=== PATIENT | female | born 1945 | race Caucasian/White ===

== ENCOUNTER 2017-09-10 09:46 | Inpatient (IN) | payer OTHER, MEDICARE ==
--- NOTE | 2017-09-10 09:49 | EDPHY ---
H & P Time Seen by Provider: 09/10/17 09:47 Constitutional: Initial Vital Signs Temperature (C) 36.6 C 09/10/17 09:46 Heart Rate 112 H 09/10/17 09:46 Respiratory Rate 20 09/10/17 09:46 Blood Pressure 150/101 H 09/10/17 09:46 O2 Sat (%) 84 L 09/10/17 09:46 O2 Delivery Mode Oxymizer O2 (L/minute) 2 Allergies/Adverse Reactions: No Known Allergies Allergy (Unverified 09/10/17 10:05) Home Medications: Medication Instructions Recorded Allopurinol 09/10/17 Artificial Tears Eye Ointment 09/10/17 Docusate Sodium 09/10/17 FLUDROCORTISONE ACETATE 09/10/17 Lorazepam 09/10/17 MIRTAZAPINE 09/10/17 Miralax 17 gm (*) 09/10/17 Percocet 10-325 mg Tablet 09/10/17 Prozac 10 MG (*) 09/10/17 Roxanol Solution 20 mg/ml 30 ml 09/10/17 Seroquel 09/10/17 traZODone 09/10/17 Medical Decision Making - Diagnostics Imaging Results: Imaging Impressions Hip X-Ray 09/10/17 10:00 Impression: Acute angulated moderately displaced left femoral neck fracture. Imaging: I viewed and interpreted images myself ED Course/Re-evaluation: CHIEF COMPLAINT: Left hip pain HISTORY OF PRESENT ILLNESS: The patient is a 71 y/o female with end-stage dementia arriving via EMS from [facility] for evaluation of left hip pain. No history is obtainable from the patient due to dementia. Family states the patient fell last Sunday, 3 days ago, and fractured her hip as demonstrated by an x-ray at her facility. She she was in hospice care at that time, they decided not to surgically repair the fracture. Family has since revoked hospice and wants surgical treatment for the fracture, but refuse general anesthesia because they are concerned this will worsen the patient's dementia. No recent report of illness. REVIEW OF SYSTEMS: Unobtainable due to dementia. PHYSICAL EXAM: HR, BP, O2 Sat, RR. Temp noted General Appearance: Alert, disoriented, unable to follow commands, and chronically ill-appearing. Head: Atraumatic without scalp tenderness or obvious injury Eyes: Pupils equal, round, reactive to light and accommodation, EOMI, no trauma , no injection. Nose: Atraumatic, no rhinorrhea, clear. Throat: Mucus membranes moist. Neck: Supple Respiratory: No retractions, no distress, no wheezes, and no accessory muscle use. Lungs are clear to auscultation bilaterally. Cardiovascular: Regular rate and rhythm, no murmurs, rubs, or gallops. Good capillary refill all extremities. Gastrointestinal: Abdomen is soft, nontender, non-distended, no masses, no rebound, no guarding, no peritoneal signs. Musculoskeletal: Tenderness and pain with ROM of left hip, shortened and externally rotated. Otherwise normal active ROM of all extremities, atraumatic. Neurological: Alert, disoriented, unable to follow commands. No focal deficit. Skin: No rashes, good turgor, no nodules on palpation. Past medical history: Lewy body dementia, failure to thrive Past surgical history: Eye surgery, right hip surgery Family history: Noncontributory Social history: Lives in dementia care unit at [facility]. MDPOA: family, Reyes Lott. DIAGNOSTICS/PROCEDURES/CRITICAL CARE TIME: Hip x-ray: left femoral neck fracture, prosthetic right hip DIFFERENTIAL DIAGNOSIS: The differential diagnosis for the patient's trauma included but was not limited to intracranial injury, long bone and pelvic bone fractures, spinal injury, intra-abdominal injury, and intra-thoracic injury. MEDICAL DECISION MAKING: This is a 71 y/o female with end-stage Lewy body dementia who was on hospice until recently and presents 3 days after a left hip fracture secondary to fall at her facility. History and exam limited by dementia. Left hip tenderness and pain with ROM. Movement in all extremities. Plan for x-ray to confirm reported fracture, IV, pre-operative labs, and admission. X-ray confirmed left femoral neck fracture. Spoke with hospitalist service. Dr. Arambula accepts admission. 1100: Consulted with Dr. Bonds, orthopedist. He will consult during admission. Discussed plan with patient's family. They agree to admission. Departure - Departure Disposition: [facility] Acute Clinical Impression: Left displaced femoral neck fracture Dementia Qualifiers: Dementia type: Lewy body dementia Dementia behavioral disturbance: without behavioral disturbance Qualified Code(s): G31.83 - Dementia with Lewy bodies Condition: Fair Referrals: Patient,NotPresent [Unknown] - As per Instructions Report Scribed for: Quinn Tyson Report Scribed by: Katlyn Coffman Date of Report: 09/10/17 Time of Report: 09:58
[2017-09-10 11:46] LABS: PLATELET COUNT 226 10^3/uL (150-400)
[2017-09-10 11:57] LABS: INR 1.03 (0.83-1.16); PROTIME(PATIENT) 13.7 SEC (12.0-15.0)
[2017-09-10] MEDS ORDERED: PROMETHAZINE HCL 25 MG/ML INJ IVP PRN (13:12)
[2017-09-10] MEDS ORDERED: LORazepam 2 MG/ML INJ IVP PRN ×2 (13:12→13:23)
[2017-09-10] MEDS ORDERED: MORPHINE PO PRN (13:16)
[2017-09-10] MEDS ORDERED: morphINE 10 MG/0.5 ML UDSYR PO PRN (13:35)
--- NOTE | 2017-09-10 13:58 | GHP ---
[f rep st] HISTORY AND PHYSICAL DATE OF ADMISSION: 09/10/2017 CHIEF COMPLAINT: Hip pain. HISTORY OF PRESENT ILLNESS: Ms. Lott is a 71-year-old with a history significant for advanced Lewy body dementia. This is complicated by psychosis, parkinsonism. She is currently living with her hus band at [facility] with the help of hospice. Three days ago she fell and fractured her hip. They have been treating her medically with Roxanol and Percocet at the facility. However, her did not want to see her that way, so elected to take her off hospice and have her hi p fixed hoping that she would be ambulatory again. She is currently on hospice for protein calorie m alnutrition and weight loss. Hospice came with the family today. They are taking her off hospice an d all of the history is gleaned from the and daughter, Cheryle, who is the medical power of attor tito. Ms. Lott has no significant past medical history except for the Lewy body dementia. She has a healthy heart and lungs as far as they know. She has had some eye surgery on her left eye and is tr eated with some eyedrops currently. She is intermittently incontinent of stool, but is likely mostly secondary to confusion. She has been able to tolerate Ativan at the assisted living without signifi cant agitation, but has worsening agitation with Haldol. She also has been on Roxanol for pain and s cheduled Percocet. She has been taking Seroquel, Remeron, and trazodone at night for sleep. She was seen in the ER today by Dr. Bonds from Orthopedics who hopes to take her to surgery later today or to [facility] depending on the OR schedule. Currently she looks scared, but does not appear to be i n excessive pain. REVIEW OF SYSTEMS: Unobtainable per patient given her advanced dementia. PAST MEDICAL HISTORY: Lewy body dementia, gout, chronic eye problems. FAMILY HISTORY: Parents are . SOCIAL HISTORY: The patient was previously living in [place] with her . He had a catatoni c manic break and has been in a psychiatric [facility] for the last 2 months, receiving ECT for h is catatonia. In the interim, the patient was moved to [place] to be with her daughter. Her is currently out of the psychiatric cui, woke up from his catatonia and is living with his in [facility]. Currently the daughter Cheryle is the medical power of cyber security consultant. MEDICATIONS: Please see medication reconciliation form. These include Remeron 15 at night, morphine , Roxanol as needed, Percocet 10-325 every 6 hours, MiraLAX, Seroquel 25 at night, trazodone 50 at ni ght, allopurinol 300 daily, Ativan 0.5 at night and 3 times a day as needed, ciprofloxacin eyedrops, Colace, Florinef 0.5 mg daily, Prozac 20 mg daily. ALLERGIES: No known drug allergies although the daughter states that Haldol makes her pass fairly ag itated. PHYSICAL EXAMINATION: VITAL SIGNS: She is afebrile, heart rate 102 with a blood pressure 145/89, re spirations 18, she is 80% on room air 95% on 2 L. GENERAL: She is a thin 71-year-old woman who look s scared and mildly agitated, but does not appear to be in excessive pain. HEENT: She does have leanne e temporal wasting. Mucous membranes are dry. Pupils are irregular and not equal. Her left pupil a ppears to be minimally reactive and this is an old finding. HEART: Regular with a systolic murmur. LUNGS: Clear and diminished. ABDOMEN: Soft. No distention. Mild diffuse tenderness without guar ding or rebound. EXTREMITIES: No clubbing, cyanosis, or edema. She does have an acute angulated mo derately displaced fracture of the left femoral neck and prior right hip arthroplasty and completely visualized. NEUROLOGIC: She is minimally verbal, very poor short-term memory. NECK: No significan t adenopathy. LABORATORY DATA: Sodium 150, BUN 24, creatinine 0.9, glucose 144. CBC is unremarkable. Coags are n ormal. ASSESSMENT AND PLAN: 71-year-old presents with a fall and acute left hip fracture, has failed pain m anagement with hospice and is being admitted for surgery. Dr. Bonds is the orthopedic water conservation specialist and has seen the patient and plans on taking her to surgery later today. Given her overall need for surgery and poor neurological prognosis, I will not do any further evaluation but clear her for surgery. Nazario capellan does not have any documented history of heart or lung disease. She has moderate to high risk given her comorbidities. However, this surgery needs to be done. 1. Lewy body dementia with psychosis and parkinsonism. We will continue her present medications. Andria capellan will supplement this with extra doses of Seroquel and Ativan on an as needed basis. 2. Pain control. Will continue oral medications as previously prescribed by hospice. However, whmain capellan she is n.p.o. we will provide IV morphine. 3. Code status. I did have a long discussion with the daughter Cheryle. At this time she wishes her to be full code, but will think about transitioning her to at least no compression status. 4. Deep venous thrombosis prophylaxis. Patient is going to undergo surgery. We will hold chemical prophylaxis and place TEDs and SCD and resume chemical prophylaxis after surgery. /[id number]/MODL
[2017-09-10] MEDS: TEARS/DEXTRAN 70/HYPROMELLOSE 15 ML OPHT.BTL EACHEYE SCH ×4 (14:53→23:40)
[2017-09-10] MEDS: D5W 1/2 NS 1,000 ML IV SCH (15:03)
--- NOTE | 2017-09-10 16:10 | PDMN ---
Medical Necessity Medical necessity: est los>2mn for L hip fx r/t fall, w/failed pain management on hospice; admit for pain control and surgical repair of fx; comorbid advane Lewy body dementia complicated by psychosis and parkinsonism; per order and H&P 09/10/17
[2017-09-10] MEDS ORDERED: BACITRACIN 50,000 UNITS/10 ML SYR IRR ONE (17:51)
[2017-09-10] MEDS ORDERED: POLYMYXIN B SULFATE 500,000 UNIT/10 ML SYR IRR ONE (17:51)
[2017-09-10] MEDS ORDERED: NON-FORMULARY NEW DRUG (Oxycodone Hcl/Acetaminophen [Percocet 10-325 Mg Tablet] 1 EACH) PO SCH (18:00)
[2017-09-10] MEDS ORDERED: LR 1,000 ML IV ONE (18:06)
[2017-09-10] MEDS ORDERED: ceFAZolin 2 GM/SWFI 2 GM/20 ML SYR IVP ONE (18:22)
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
[2017-09-10] MEDS ORDERED: LIDOCAINE 2% 5 ML SDV ONE (18:41)
[2017-09-10] MEDS ORDERED: PROPOFOL/EMULSION 500 MG/50 ML BOTTLE IV ONE (18:41)
[2017-09-10] MEDS ORDERED: fentaNYL 100 MCG/2 ML INJ ONE (18:46)
[2017-09-10] MEDS ORDERED: KETAMINE 200 MG/20 ML VIAL ONE (18:46)
[2017-09-10] MEDS ORDERED: DEXAMETHASONE 4 MG/ML VIAL ONE ×2 (19:42)
[2017-09-10] MEDS ORDERED: PHENYLEPHRINE HCL 100 MCG/ML SYR ONE (20:03)
--- NOTE | 2017-09-10 20:05 | GCON ---
[f rep st] CONSULTATION INPATIENT CONSULTATION. DATE OF CONSULTATION: 09/10/2017 REASON FOR CONSULTATION: Left femoral neck fracture. HISTORY: The patient is a 71-year-old woman with a significant past history of advanced Lewy body de mentia. She was recently placed in hospice and had a mechanical fall, sustaining the above-noted lef t hip fracture. Her past history is also significant for a right hip fracture treated with hemiarthr oplasty about 6 years ago in [place] where she lived previously. She has recently moved to [facility] to be closer to her daughter, who lives here. Her has removed her from hospice in order t o have her hip fracture fixed due to the excessive pain she is in and their inability to control this satisfactorily at hospice. PAST MEDICAL HISTORY: Otherwise, her medical history is well outlined in her admission through the e mergency department. PHYSICAL EXAMINATION: EXTREMITIES: Finds her left leg to be foreshortened and externally rotated co mpared to the right. She has difficult to communicate accurately with her, but according to her husb and and daughter, who understand her communication, she does appear to have abnormal sensation in her foot. She has a bounding dorsalis pedis pulse. Her x-rays show a Garden IV femoral neck fracture with significant varus angular deformity. IMPRESSION AND RECOMMENDATIONS: Particular symptomatic left femoral neck fracture. We will plan for cemented hemiarthroplasty fixation such that she may allow immediate weightbearing. She is remarkab ly slender. We will perform her surgery later today as OR time is available. /[id number]/MODL
[2017-09-10] MEDS ORDERED: DIAZEPAM 10 MG/2 ML SYR IVP PRN (20:48)
[2017-09-10] MEDS ORDERED: HYDROmorphONE/DILAUDID 1 MG/ML INJ IVP PRN (20:48)
[2017-09-10] MEDS ORDERED: ALBUTEROL 3 ML DEYVIAL IH PRN (20:48)
[2017-09-10] MEDS ORDERED: LR 500 ML IV PRN (20:48)
[2017-09-10] MEDS ORDERED: NALOXONE HCL 0.4 MG/ML INJ IVP PRN (20:48)
[2017-09-10] MEDS ORDERED: ONDANSETRON 4 MG/2 ML VIAL IVP PRN (20:48)
[2017-09-10] MEDS ORDERED: fentaNYL 100 MCG/2 ML INJ IVP PRN (20:48)
[2017-09-10] MEDS ORDERED: BUPIVACAINE/EPI 0.5% 30 ML SDV ONE (20:52)
[2017-09-10] MEDS ORDERED: NON-FORMULARY NEW DRUG (Mirtazapine [Remeron] 15 MG) PO SCH (21:00)
[2017-09-10] MEDS ORDERED: PETROLAT,WHT/MIN OIL/SOD CHL 3.5 GM OPHT.OINT LEFTEYE SCH (21:00)
[2017-09-10] MEDS ORDERED: CIPROFLOXACIN HCL LEFTEYE SCH (21:00)
--- NOTE | 2017-09-10 21:13 | POSTANESTH ---
Post Anesthetic Evaluation Cardiovascular Status: Normal, Stable Respiratory Status: Normal, Stable Level of Consciousness/Mental Status: Other, See Comment (Demented, did not answer questions or follow commands pre-op and is not doing so now. Difficult to assess pain or nausea, however pt not grimacing or retching.) Complications Possibly Related to Anesthesia: Other, See Comments
--- NOTE | 2017-09-10 21:26 | POSTOPPROG ---
Post Op Note Date of Operation: 09/10/17 Surgeon: Reyes Bonds Residence Supervisor: Marina Mcqueen PA-C Anesthesia: Spinal Pre-op Diagnosis: Left hip femoral neck fracture Post-op Diagnosis: Left hip femoral neck fracture Indication: unstable fracture Procedure: Left hip hemiarthroplasty: Luana Head45/[id number], Stem 5 cemented Findings: see dictated operative note Inf/Abcess present in the surg proc area at time of surgery?: No EBL: 50-100 Complications: none Specimen(s): none
--- NOTE | 2017-09-10 22:20 | GOP ---
[f rep st] OPERATIVE REPORT DATE OF OPERATION: 09/10/2017 SURGEON: Reyes Bonds MD CLOTHING WORKER: Marina Mcqueen PA-C PREOPERATIVE DIAGNOSIS: Left Garden IV femoral neck fracture. POSTOPERATIVE DIAGNOSIS: Left Garden IV femoral neck fracture. PROCEDURE PERFORMED: Left hip hemiarthroplasty. FINDINGS: An Omnifit SRAVAN 132-degree, size 5 cemented stem was utilized with a 26 mm head and a 45 mm bipolar head. INDICATIONS: Patient is a 71-year-old woman who is disabled secondary to Lewy body dementia and park insonism. She had a mechanical fall with a fracture noted several days ago. She is brought to the ope rating room today for definitive surgical management at the family's request. DESCRIPTION OF PROCEDURE: After routinely checking the patient's identification and consent and the successful induction of spinal anesthetic, the patient was positioned in the left side up side-lying position. Padded hip rests were placed anteriorly and posteriorly. A Wilson catheter was placed to con tinuous bag drainage and the patient received 2 g of Kefzol intravenously. The patient's left hip was then prepped and draped in the usual standard fashion. A surgical time-out was completed. A longitudinal incision centered over the greater trochanter was carried sharply through the skin and then bluntly through the subcutaneous layer. I used a hot knife to dissect down to the IT-band which was then incised longitudinally in a manner parallel with its fibers directly over the greater troch anter. The Charnley self-retaining retractor was placed. I took down the short external rotators from the posterior aspect of the greater trochanter including tagging the piriformis tendon for subsequen t repair. I exposed the joint capsule and made a T-shaped capsulotomy. We then internally rotated the leg, which dislocated the hip and brought the femoral head easily out of the acetabulum. This was si zed on the back table to a size 45 mm head. A trial 44 and 45 mm heads were then placed in the acetab ulum with excellent fit with a 45 with excellent suction effect noted and the surface was flush with the acetabular labrum. Satisfied with this, I then used a box osteotome to create entrance into the f emoral canal. I used a series of reamers and broaches up to a size 5 broach. I seated the #5 cemented broach and used the calcar planer to trim the remaining femoral neck bone. Once this was completed, we did a trial reduction. I was satisfied with the 30 mm neck length when we did a trial reduction wi th a 45 mm head. I felt the leg lengths were symmetrical and when the patient's hip was flexed to 90 degrees and internally rotated, the hip did not dislocate until 60 degrees of internal rotation. The trial implants were then removed. The femoral canal was irrigated with pulsatile lavage. The polymeth ylmethacrylate was then simultaneously vacuum mixed on the back table. I then pressurized methacrylat e in the femoral canal and placed the implant. Excess cement was removed with curettes. The stem was held in position until the cement had hardened. I then removed all excess cement particles and irriga claudia the acetabulum thoroughly. I reduced the hip with its definitive components. I was quite satisfie d with the stability and the leg lengths. Re-irrigated the area and then closed the capsule with 2-0 FiberWire suture. I then reattached the piriformis tendon back to the greater trochanter through bone holes. I was able to pass suture needle directly through the greater trochanter. The IT band was the n approximated with multiple interrupted [id number] buried knot sutures of #1 PDS. The subcutane ous layer was closed with 2-0 Vicryl and the skin with surgical percy. 30 cc of 0.25% Marcaine plus epinephrine were infiltrated around the wound and deeply around under the greater trochanter for pos toperative comfort and assistance in hemostasis. A sterile bulky dressing was applied. The patient tolerated the procedure well and was transferred to recovery area in excellent condition. There were no complications. REASON FOR CLOTHING WORKER: A surgical corsetier was medically necessary and required to complete this chaparrita e. The pastry assistant was used to decrease surgical time and also to position the leg in 3-dimensional spa ce during the preparation of the femoral canal and placement of the definitive implant. Additionally, the pastry assistant was used to assist in dislocating and relocating the hip on numerous occasions necessa ry during the trialing and definitive implant placement. /[id number]/MODL
[2017-09-10] MEDS: LORazepam 0.5 MG TAB PO SCH (23:27)
[2017-09-10] MEDS: MIRTAZAPINE 15 MG TAB PO SCH (23:28)
[2017-09-10] MEDS: QUEtiapine FUMARATE 25 MG TAB PO SCH (23:28)
[2017-09-10] MEDS ORDERED: ENOXAPARIN 60 MG/0.6 ML SYR SC SCH (23:30)
[2017-09-10] MEDS: traZODone 50 MG TAB PO SCH (23:42)
[2017-09-10] MEDS: oxyCODONE IR 5 MG TAB PO PRN (23:48)
[2017-09-10] MEDS: CIPROFLOXACIN 0.3% DROPS PREPACK OPHT.BTL TAKEHOME SCH (23:53)
[2017-09-11] MEDS: PETROLAT,WHT/MIN OIL/SOD CHL 3.5 GM OPHT.OINT LEFTEYE SCH ×2 (00:09→21:17)
[2017-09-11] MEDS: TEARS/DEXTRAN 70/HYPROMELLOSE 15 ML OPHT.BTL EACHEYE SCH ×12 (00:57→23:12)
[2017-09-11] MEDS: ceFAZolin 2 GM/DEXTROSE 100 ML IV SCH ×2 (01:30→09:13)
[2017-09-11 05:55] LABS: PLATELET COUNT 205 10^3/uL (150-400)
[2017-09-11] MEDS: ENOXAPARIN 40 MG/0.4 ML SYR SC SCH (08:27)
[2017-09-11] MEDS: CIPROFLOXACIN 0.3% DROPS PREPACK OPHT.BTL TAKEHOME SCH ×2 (08:28→21:17)
[2017-09-11] MEDS: oxyCODONE IR 5 MG TAB PO PRN ×4 (09:12→19:21)
[2017-09-11] MEDS: FLUoxetine 20 MG CAP PO SCH (09:13)
[2017-09-11] MEDS: FLUDROCORTISONE ACETATE 0.1 MG TAB PO SCH (09:13)
[2017-09-11] MEDS: DOCUSATE SODIUM 100 MG CAP PO SCH (09:13)
[2017-09-11] MEDS: POLYETHYLENE GLYCOL 3350 17 GM PKT PO SCH (10:09)
--- NOTE | 2017-09-11 10:52 | HOSPPROG ---
Hospitalist Progress Note Assessment/Plan: 71-year-old admitted with hip fracture status post hemiarthroplasty by Dr. Bonds. She Has a past medical history significant for Lewy body dementia. # hip fracture status post surgery. PT and OT T per Dr. Bonds will likely need rehab post hospitalization # Lewy body dementia complicated by psychosis and parkinsonian. * Continue her usual medication * Added extra Ativan and Seroquel to use as needed for agitation while in the hospital * Will likely impact her rehab potential # hypernatremia likely secondary to dehydration and poor p.o. intake. Encourage p. O. will continue IV fluids today and likely DC IVF tomorrow if sodium improves * Recheck sodium in a.m. * Poor p.o. unless helps feeding her, will have speech therapy evaluation done # question abdominal pain. Fairly off but patient grimacing. * Check flat plate of the abdomen, rule out constipation * Check LFTs # small lung nodule noted on chest x-ray. I spoke with daughter Cheryle about this she is a medical power trade mark attorney and recommended no further workup given the patient's debilitated state. The daughter was in favor of this perhaps if she does well 3-[address] they could consider follow-up chest x- ray. I would not however get a CT scan at this point since the patient would likely not be and a suitable candidate for any treatment should this be cancer # DVT prophylaxis: Start subcu Lovenox if okay with Ortho Disposition: Patient's daughter will talk with case management regarding rehab. Admission they were looking towards rehab and re-establishing hospice once the patient was ambulating and able to go back to her assisted living facility. Subjective: Patient agitated scared due to her dementia. No obvious complaints of pain although grimaces when I examine her abdomen Objective: Vital Signs Temp Pulse Resp BP Pulse Ox 36.6 C 96 18 118/68 94 09/11/17 08:40 09/11/17 08:40 09/11/17 08:40 09/11/17 08:40 09/11/17 08:40 Laboratory Results 09/11/17 04:48 09/11/17 04:48 09/10/17 09/11/17 09/12/17 05:59 05:59 05:59 Intake Total 1700 Output Total 700 Balance 1000 PT 13.7 SEC (12.0-15.0) 09/10/17 11:32 INR 1.03 (0.83-1.16) 09/10/17 11:32 - Physical Exam Constitutional: chronically ill appearing, uncomfortable Eyes: No PERRL Ears, Nose, Mouth, Throat: dry mucous membranes Cardiovascular: regular rate and rhythym Respiratory: no respiratory distress, reduced air movement Gastrointestinal: tenderness, No distension Genitourinary: no bladder fullness Skin: warm Musculoskeletal: generalized weakness Neurologic: No AAOx3 Psychiatric: anxious, agitated, poor memory ICD10 Worksheet Patient Problems: Problems Problem Status Onset Dementia Acute Left displaced femoral neck fracture Acute
[2017-09-11] MEDS: D5W 1/2 NS 1,000 ML IV SCH ×2 (11:07→21:33)
--- NOTE | 2017-09-11 15:25 | ASMTCMCOM ---
CM Note CM Note Notes: Pt had surgery for hip fracture yesterday. Pt lives w Steven at [facility] in memory care unit, pt has advanced dementia. Pt was on hospice and after fell she was d/c form hospice for the surgery and Steven wants pt to go to SNF for rehab (prefers a [facility] SNF). Referrals sent: [facility] declines due to adv dementia, Interested SNFs include [facility], [facility] and [facility], pending referrals are [facility] and [facility]. Pt currently has a sitter and would need to be off 24 hours for SNF d/c. CM to follow. Date Signed: 09/11/2017 03:24 PM Electronically Signed By:BECKA Diez
[2017-09-11] MEDS ORDERED: NS 500 ML IV ONE (15:49)
[2017-09-11] MEDS ORDERED: MAGNESIUM HYDROXIDE 30 ML UDCUP PO PRN (17:10)
[2017-09-11] MEDS ORDERED: BISACODYL 10 MG SUPP PR PRN (17:10)
[2017-09-11] MEDS ORDERED: LACTULOSE 20 GM/30 ML UDCUP PO PRN (17:10)
[2017-09-11] MEDS: LORazepam 0.5 MG TAB PO SCH (20:16)
[2017-09-11 21:05] LABS: PLATELET COUNT 219 10^3/uL (150-400)
[2017-09-11] MEDS: MIRTAZAPINE 15 MG TAB PO SCH (21:16)
[2017-09-11] MEDS: traZODone 50 MG TAB PO SCH (21:17)
[2017-09-11] MEDS: QUEtiapine FUMARATE 25 MG TAB PO SCH (21:17)
[2017-09-11] MEDS: SENNOSIDES/DOCUSATE SODIUM TAB PO SCH (21:17)
[2017-09-12] MEDS: TEARS/DEXTRAN 70/HYPROMELLOSE 15 ML OPHT.BTL EACHEYE SCH ×11 (01:16→23:19)
[2017-09-12] MEDS: D5W 1/2 NS 1,000 ML IV SCH ×2 (05:14→17:47)
[2017-09-12] MEDS: oxyCODONE IR 5 MG TAB PO PRN ×2 (06:16→11:29)
[2017-09-12] MEDS ORDERED: PROTOCOL MAGNESIUM 1 DOSE IV PRN (07:24)
[2017-09-12] MEDS ORDERED: PROTOCOL POTASSIUM 1 DOSE MISC PRN (07:24)
[2017-09-12] MEDS ORDERED: POTASSIUM Cl (KCl) 100 ML IV SCH (07:45)
--- NOTE | 2017-09-12 07:58 | SOAPPROG ---
SOAP Progress Note Assessment/Plan: Assessment: POD#2 from left hip femoral neck fracture fixed with hemiarthroplasty Plan: WBAT LLE PT/OT Pain medicine as needed Daily dressing changes DVT prophylaxis STEFANIA hose Ortho to follow Subjective: Patient is POD#2 from left hip femoral neck fracture fixed with hemiarthroplasty Objective: Vital Signs Temp Pulse Resp BP Pulse Ox 37.2 C 92 18 131/70 H 95 09/12/17 04:00 09/12/17 04:00 09/12/17 04:00 09/12/17 04:00 09/12/17 04:00 Laboratory Results 09/12/17 05:08 09/12/17 05:08 09/11/17 09/12/17 09/13/17 05:59 05:59 05:59 Intake Total 1700 3683 Output Total 700 820 Balance 1000 2863 PT 13.7 SEC (12.0-15.0) 09/10/17 11:32 INR 1.03 (0.83-1.16) 09/10/17 11:32 Physical exam of the left hip: dressing clean, dry and intact. Incision healing well, percy are intact, no erythema. Distal pulse present in the LLE. ICD10 Worksheet Patient Problems: Problems Problem Status Onset Dementia Acute Left displaced femoral neck fracture Acute
[2017-09-12] MEDS: POTASSIUM Cl (KCl) 10 MEQ in NS 100 ML IV SCH ×3 (08:54→11:36)
[2017-09-12] MEDS: ENOXAPARIN 40 MG/0.4 ML SYR SC SCH (09:01)
[2017-09-12] MEDS: FLUDROCORTISONE ACETATE 0.1 MG TAB PO SCH (09:02)
[2017-09-12] MEDS: FLUoxetine 20 MG CAP PO SCH (09:03)
[2017-09-12] MEDS: CIPROFLOXACIN 0.3% DROPS PREPACK OPHT.BTL TAKEHOME SCH ×2 (09:20→20:37)
[2017-09-12] MEDS: POLYETHYLENE GLYCOL 3350 17 GM PKT PO SCH (09:21)
[2017-09-12] MEDS: DOCUSATE SODIUM 100 MG CAP PO SCH (09:21)
[2017-09-12] MEDS: SENNOSIDES/DOCUSATE SODIUM TAB PO SCH ×2 (09:21→20:37)
--- NOTE | 2017-09-12 09:25 | SOAPPROG ---
SOAP Progress Note Assessment/Plan: Assessment: Doing Fine, Hard to understand her verbal skills but at bedside and he is able to help with this Plan:Pain control DVT prophylaxxis PT as tolerated. D/C planning 09/12/17 09:23 Subjective: LATE ENTRY FROM 09/11/17 POD 1 c/o pain in L hip. Objective: Vital Signs Temp Pulse Resp BP Pulse Ox 37.2 C 99 18 131/70 H 95 09/12/17 04:00 09/12/17 08:00 09/12/17 04:00 09/12/17 04:00 09/12/17 08:00 Laboratory Results 09/12/17 05:08 09/11/17 09/12/17 09/13/17 05:59 05:59 05:59 Intake Total 1700 3683 Output Total 700 820 Balance 1000 2863 PT 13.7 SEC (12.0-15.0) 09/10/17 11:32 INR 1.03 (0.83-1.16) 09/10/17 11:32 Wound CDI Calves NT CSM I toes ankles ICD10 Worksheet Patient Problems: Problems Problem Status Onset Dementia Acute Left displaced femoral neck fracture Acute
[2017-09-12] MEDS ORDERED: POTASSIUM Cl (KCl) 10 MEQ in NS 100 ML IV ONE (10:45)
[2017-09-12] MEDS ORDERED: MAGNESIUM SULF 1 GM/DEXTROSE 100 ML IV ONE (13:25)
--- NOTE | 2017-09-12 14:59 | ASMTCMCOM ---
CM Note CM Note Notes: Pt PASRR triggered and sent to [facility], returned and approved with no MMI. An accepting SNF is still pending. [facility] has declined pt due to adv dementia. Several SNFs are still considering. mAina Nelson met smiley Harris and will consider an on-site once pt is off a sitter. Cm to follow. D/c plan of care: SNF once medically stable and there is an accepting facility. Date Signed: 09/12/2017 02:37 PM Electronically Signed By:BECKA Diez
--- NOTE | 2017-09-12 18:08 | HOSPPROG ---
Hospitalist Progress Note Assessment/Plan: 71-year-old admitted with hip fracture status post hemiarthroplasty by Dr. Bonds. She Has a past medical history significant for Lewy body dementia. # hip fracture status post surgery. PT and OT T per Dr. 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 intake- sodium improved to 150-> 140 with ivf - continue IV fluids today and likely DC IVF tomorrow if oral intake improves - Recheck sodium in a.m. # question abdominal pain- less grimacing today on exam Abdominal x-ray(personally reviewed and interpreted) constipation no bowel obstruction - bowel regimen # small lung nodule noted on chest x-ray- daughter Cheryle about this she is a medical power detailer school photographs and recommended no further workup given the patient's debilitated state. The daughter was in favor of this perhaps if she does well 3 -[address] they could consider follow-up chest x-ray. I would not however get a CT scan at this point since the patient would likely not be and a suitable candidate for any treatment should this be cancer # DVT prophylaxis-Lovenox Disposition: Patient's daughter will talk with case management regarding rehab. Admission they were looking towards rehab and re-establishing hospice once the patient was ambulating and able to go back to her assisted living facility. Subjective: Concerned about lost jewelry Objective: Vital Signs Temp Pulse Resp BP Pulse Ox 37.2 C 109 H 18 147/65 H 93 09/12/17 04:00 09/12/17 17:43 09/12/17 17:43 09/12/17 17:43 09/12/17 15:05 Laboratory Results 09/12/17 05:08 09/12/17 08:45 09/11/17 09/12/17 09/13/17 05:59 05:59 05:59 Intake Total 1700 3683 340 Output Total 700 820 450 Balance 1000 2863 -110 PT 13.7 SEC (12.0-15.0) 09/10/17 11:32 INR 1.03 (0.83-1.16) 09/10/17 11:32 - Physical Exam Constitutional: chronically ill appearing Eyes: anicteric sclera Ears, Nose, Mouth, Throat: dry mucous membranes Cardiovascular: regular rate and rhythym Respiratory: no respiratory distress Gastrointestinal: normoactive bowel sounds Genitourinary: no bladder fullness Skin: warm Musculoskeletal: No asymmetric calves Neurologic: No AAOx3 Psychiatric: poor insight, poor judgement, poor memory Lymph, Heme, Immunologic: no cervical LAD ICD10 Worksheet Patient Problems: Problems Problem Status Onset Dementia Acute Left displaced femoral neck fracture Acute
[2017-09-12] MEDS: MIRTAZAPINE 15 MG TAB PO SCH (20:36)
[2017-09-12] MEDS: QUEtiapine FUMARATE 25 MG TAB PO SCH (20:37)
[2017-09-12] MEDS: PETROLAT,WHT/MIN OIL/SOD CHL 3.5 GM OPHT.OINT LEFTEYE SCH (20:38)
[2017-09-12] MEDS ORDERED: POTASSIUM Cl (KCl) 10 MEQ in NS 100 ML IV SCH (23:30)
[2017-09-12] MEDS: POTASSIUM Cl (KCl) 10 MEQ in D5W 100 ML IV SCH (23:32)
[2017-09-13] MEDS: POTASSIUM Cl (KCl) 10 MEQ in D5W 100 ML IV SCH ×3 (00:48→02:52)
[2017-09-13] MEDS: TEARS/DEXTRAN 70/HYPROMELLOSE 15 ML OPHT.BTL EACHEYE SCH ×12 (00:49→23:12)
[2017-09-13] MEDS: D5W 1/2 NS 1,000 ML IV SCH ×2 (05:50→14:37)
--- NOTE | 2017-09-13 08:08 | SOAPPROG ---
SOAP Progress Note Assessment/Plan: Assessment: POD#3 from left hip femoral neck fracture fixed with hemiarthroplasty. Patient has a h/o Lewy Body dementia and is unable to respond appropriately to questions or command. Plan: TTWB, encourage PT/OT for ambulation and use of walker. Pain medicine as needed Daily dressing changes: dry dressing. Notify us if abnormal bleeding/oozing/ discharge noted, change in heat/color around wound site. DVT prophylaxis: STEFANIA lisa and SCDs. Continue plan per IM. Ok to D/C once stable and cleared by IM. F/U in 7-10 days or prn additional questions/concerns which may arise. Patient discussed with Dr. Bonds. Subjective: Doing well POD #3. Unable to respond appropriately to questions. Alone in room. Objective: Vital Signs Temp Pulse Resp BP Pulse Ox 36.3 C 84 18 104/55 L 98 09/13/17 07:30 09/13/17 07:30 09/13/17 07:30 09/13/17 07:30 09/13/17 07:30 Laboratory Results 09/12/17 05:08 09/13/17 05:13 18 18 02/18 05:59 05:59 05:59 Intake Total 3683 1750 Output Total 820 450 Balance 2863 1300 PT 13.7 SEC (12.0-15.0) 09/10/17 11:32 INR 1.03 (0.83-1.16) 18 11:32 NAD. Moist buccal mucosa. Non-labored breathing. No diaphoresis. Unable to respond appropriately to command or questions. M/S: Left hip bandaged with no signs of infection. No abnormal bleeding/oozing/ discharge, change in heat/color around wound site or of extremities. SCDs in place b/l. Calves soft/supple and NTTP b/l. Brisk cap refill b/l. ICD10 Worksheet Patient Problems: Problems Problem Status Onset Dementia Acute Left displaced femoral neck fracture Acute
[2017-09-13] MEDS ORDERED: MAGNESIUM SULF 1 GM/DEXTROSE 100 ML IV ONE (09:23)
[2017-09-13] MEDS ORDERED: POTASSIUM Cl (KCl) 100 ML IV SCH (09:30)
[2017-09-13] MEDS: FLUoxetine 20 MG CAP PO SCH (09:32)
[2017-09-13] MEDS: ENOXAPARIN 40 MG/0.4 ML SYR SC SCH (09:33)
[2017-09-13] MEDS: FLUDROCORTISONE ACETATE 0.1 MG TAB PO SCH (09:33)
[2017-09-13] MEDS: morphINE 10 MG/0.5 ML UDSYR PO PRN ×4 (09:34→20:14)
[2017-09-13] MEDS: CIPROFLOXACIN 0.3% DROPS PREPACK OPHT.BTL TAKEHOME SCH ×2 (09:45→20:33)
[2017-09-13] MEDS ORDERED: POTASSIUM Cl (KCl) 10 MEQ in NS 100 ML IV SCH (10:00)
[2017-09-13] MEDS: DOCUSATE SODIUM 100 MG CAP PO SCH (11:00)
[2017-09-13] MEDS: SENNOSIDES/DOCUSATE SODIUM TAB PO SCH ×2 (11:01→20:32)
[2017-09-13] MEDS: POLYETHYLENE GLYCOL 3350 17 GM PKT PO SCH (11:01)
--- NOTE | 2017-09-13 16:07 | ASMTCMCOM ---
CM Note CM Note Notes: [facility] are concerned about admitting pt to their rehabs due to severe dementia, now that pt no longer has sitter the staff of and [facility] would need to complete an on-site assessment to consider pt. Today Ralf Carlson completed an on-site and met w pt husb, Ralf states pt is tentatively accepted pending final approval to which may be the best SNF option because they have rehab and memory care. Looks like we still need the paperwork from chris Lobato that she is the MDPOA, attempted a call Cheryle & left a vm for her requesting it. CM to follow. Date Signed: 09/13/2017 04:06 PM Electronically Signed By:BECKA Diez
--- NOTE | 2017-09-13 17:26 | HOSPPROG ---
Hospitalist Progress Note Assessment/Plan: 71-year-old admitted with hip fracture status post hemiarthroplasty by Dr. Bonds. She Has a past medical history significant for Lewy body dementia. # hip fracture status post surgery.POD#3 - PT and OT T per Dr. 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 intake- sodium improved to 150-> remains 140 with IVF - continue IV fluids today and likely DC IVF tomorrow if oral intake improves - Recheck sodium in a.m. - patient taking very little p.o. Requiring a lot of supportive care # question abdominal pain- less grimacing today on exam Abdominal x-ray (personally reviewed and interpreted) constipation no bowel obstruction - bowel regimen # small lung nodule noted on chest x-ray- daughter Cheryle about this she is a medical power admitted attorneys and recommended no further workup given the patient's debilitated state. The daughter was in favor of this perhaps if she does well 3 -[address] they could consider follow-up chest x-ray. I would not however get a CT scan at this point since the patient would likely not be and a suitable candidate for any treatment should this be cancer # DVT prophylaxis-Lovenox Disposition: Patient's daughter will talk with case management regarding rehab. Admission they were looking towards rehab and re-establishing hospice once the patient was ambulating and able to go back to her assisted living facility. Subjective: Can't predictably report pain Objective: Vital Signs Temp Pulse Resp BP Pulse Ox 36.6 C 97 16 119/61 93 09/13/17 16:00 09/13/17 16:00 09/13/17 16:00 09/13/17 16:00 09/13/17 16:00 Laboratory Results 09/12/17 05:08 09/13/17 05:13 09/12/17 09/13/17 09/14/17 05:59 05:59 05:59 Intake Total 3683 1750 Output Total 820 450 Balance 2863 1300 PT 13.7 SEC (12.0-15.0) 09/10/17 11:32 INR 1.03 (0.83-1.16) 09/10/17 11:32 - Physical Exam Constitutional: chronically ill appearing Eyes: anicteric sclera Ears, Nose, Mouth, Throat: dry mucous membranes Cardiovascular: regular rate and rhythym Respiratory: no respiratory distress Gastrointestinal: normoactive bowel sounds Genitourinary: no bladder fullness Skin: warm Musculoskeletal: No asymmetric calves Neurologic: No AAOx3 Psychiatric: No agitated Lymph, Heme, Immunologic: no cervical LAD ICD10 Worksheet Patient Problems: Problems Problem Status Onset Dementia Acute Left displaced femoral neck fracture Acute
[2017-09-13] MEDS: QUEtiapine FUMARATE 25 MG TAB PO SCH (20:32)
[2017-09-13] MEDS: MIRTAZAPINE 15 MG TAB PO SCH (20:32)
[2017-09-13] MEDS: PETROLAT,WHT/MIN OIL/SOD CHL 3.5 GM OPHT.OINT LEFTEYE SCH (20:33)
[2017-09-14] MEDS: TEARS/DEXTRAN 70/HYPROMELLOSE 15 ML OPHT.BTL EACHEYE SCH ×12 (00:29→23:28)
[2017-09-14] MEDS: D5W 1/2 NS 1,000 ML IV SCH ×2 (04:57→07:04)
[2017-09-14] MEDS: ENOXAPARIN 40 MG/0.4 ML SYR SC SCH (10:34)
[2017-09-14] MEDS: FLUDROCORTISONE ACETATE 0.1 MG TAB PO SCH (10:35)
[2017-09-14] MEDS: FLUoxetine 20 MG CAP PO SCH (10:35)
[2017-09-14] MEDS: SENNOSIDES/DOCUSATE SODIUM TAB PO SCH ×3 (10:38→23:31)
[2017-09-14] MEDS: POLYETHYLENE GLYCOL 3350 17 GM PKT PO SCH (10:38)
[2017-09-14] MEDS: CIPROFLOXACIN 0.3% DROPS PREPACK OPHT.BTL TAKEHOME SCH ×2 (10:38→23:07)
[2017-09-14] MEDS: DOCUSATE SODIUM 100 MG CAP PO SCH (10:49)
[2017-09-14] MEDS: morphINE 10 MG/0.5 ML UDSYR PO PRN ×4 (12:38→23:00)
--- NOTE | 2017-09-14 16:34 | ASMTCMCOM ---
CM Note CM Note Notes: Pt accepted at [facility], dghtr Cheryle and alicja Harris agreeable to [facility] d/c. Ralf w [facility] admissions is reaching out to Cheryle to get POA paperwork, Cheryle reports she is POA until 09/29/17 when her father is off a conservatorship in [place] and then he is POA again. Ralf reports it is best for [facility] if pt admits between 12-3p. Date Signed: 09/14/2017 04:33 PM Electronically Signed By:BECKA Diez
[2017-09-14] MEDS: PETROLAT,WHT/MIN OIL/SOD CHL 3.5 GM OPHT.OINT LEFTEYE SCH (23:07)
[2017-09-14] MEDS: MIRTAZAPINE 15 MG TAB PO SCH (23:07)
[2017-09-14] MEDS: QUEtiapine FUMARATE 25 MG TAB PO SCH (23:08)
[2017-09-15] MEDS: TEARS/DEXTRAN 70/HYPROMELLOSE 15 ML OPHT.BTL EACHEYE SCH ×13 (02:04→23:36)
[2017-09-15] MEDS: morphINE 10 MG/0.5 ML UDSYR PO PRN ×4 (06:13→23:28)
[2017-09-15] MEDS: FLUDROCORTISONE ACETATE 0.1 MG TAB PO SCH (08:47)
[2017-09-15] MEDS: FLUoxetine 20 MG CAP PO SCH (08:48)
[2017-09-15] MEDS: POLYETHYLENE GLYCOL 3350 17 GM PKT PO SCH (08:58)
[2017-09-15] MEDS: DOCUSATE SODIUM 100 MG CAP PO SCH (08:58)
[2017-09-15] MEDS: CIPROFLOXACIN 0.3% DROPS PREPACK OPHT.BTL TAKEHOME SCH ×2 (08:59→22:02)
[2017-09-15] MEDS: SENNOSIDES/DOCUSATE SODIUM TAB PO SCH ×2 (08:59→20:16)
[2017-09-15] MEDS: ENOXAPARIN 40 MG/0.4 ML SYR SC SCH (08:59)
--- NOTE | 2017-09-15 11:13 | PDIAF ---
- Diagnosis Diagnosis: hip fracture Code Status: Full Code - Medication Management Discharge Medications: Medications to Continue on Transfer Allopurinol [Allopurinol 300 MG (RX)] 300 mg PO DAILY 09/10/17 [Last Taken 09/09] Ciprofloxacin HCl [Ciprofloxacin Opth Drops] 1 drop LEFTEYE BID 09/10/17 [Last Taken 09/10/17] Docusate Sodium [Colace 100 MG (*)] 100 mg PO DAILY 09/10/17 [Last Taken ] FLUoxetine [Prozac 20 MG (*)] 20 mg PO DAILY 09/10/17 [Last Taken 09/09/17] Fludrocortisone Acetate [Florinef] 0.5 tab PO DAILY 09/10/17 [Last Taken ] LORazepam [Ativan (*)] 0.5 mg PO HS 09/10/17 [Last Taken 09/09/17] LORazepam [Ativan (*)] 0.5 mg PO TID PRN 09/10/17 [Last Taken 09/08/17] Mineral Oil/Petrolatum,White [Artificial Tears Eye Ointment] 1 drop LEFTEYE HS 09/10/17 [Last Taken 09/09/17] Mirtazapine [Remeron] 15 mg PO HS 09/10/17 [Last Taken 09/09/17] Polyethylene Glycol 3350 [Miralax 17 gm (*)] 17 gm PO DAILY 09/10/17 [Last Taken 09/08/17] QUEtiapine FUMARATE [Seroquel 25 mg (*)] 25 mg PO HS 09/10/17 [Last Taken ] Tears/Dextran 70/Hypromellose [Natural Balance Tears (*)] 1 drop EACHEYE Q2 07/16 [Last Taken 09/10/17 08:00] morphINE [Roxanol Solution 20 mg/ml 30 ml] 0.25 ml PO Q2HRS PRN 09/10/17 [Last Taken 09/10/17] oxyCODONE HCL/ACETAMINOPHEN [Percocet 10-325 mg Tablet] 1 each PO Q6HRS [Last Taken 09/10/17 00:00] traZODone [traZODONE 50MG (*)] 50 mg PO HS 09/10/17 [Last Taken 09/09/17] Discharge Medications: Refer to the Discharge Home Medication list for PRN reason. - Orders Services needed: Home Care, Registered Nurse, Physical Therapy, Occupational Therapy Home Care Face to Face: I certify that this patient was under my care and that I had the required [id number] encounter meeting the encounter requirements on the discharge day. My findings support the fact that the patient is homebound as defined in Home Care Face to Face Continued: CMS Chapter 7 Medicare Benefits Manual 30.1.1 , The condition of the patient is such that there exists a normal inability to leave home and consequently, leaving home would require a considerable and taxing effort. Diet Texture: Regular Texture Diet, Thin Liquids - Labs/Radiology BMP Date: 09/17/17 - Follow Up Care Current Providers and Referrals: Patient,NotPresent [Unknown] - As per Instructions Reyes Bonds MD [Medical Doctor] - 10/22/17 ( Follow up with Dr. Bonds in 6 weeks post op for staple removal and repeat xrays Please call our office with any questions or concerns)
--- NOTE | 2017-09-15 13:56 | ASMTCMCOM ---
CM Note CM Note Notes: Pt was ready for DC to [facility] today but MD wants to check UA and keep her one more day plus dtr and are now changing mind about [facility]. [facility] is first choice but they may not be able to take.CM to follow. Date Signed: 09/15/2017 01:55 PM Electronically Signed By:Lianne Clark LCSW
[2017-09-15] MEDS: QUEtiapine FUMARATE 25 MG TAB PO PRN (15:55)
--- NOTE | 2017-09-15 16:20 | HOSPPROG ---
Hospitalist Progress Note Assessment/Plan: #Hip fracture: POD #4 -surgical site CDI #Lewy-body dementia/Parkinson's -psychosis worse with Ativan. Stopped and added PRN Seroquel, roller belt for patient safety #Mild fever: 2. CXR, resp panel negative. UA NL #Hypernatremia:due to poor PO intake -resolved with D5 #Lung nodule: no intervention per family #abd pain: AXR with just constipation #Goals: had planned for DC to [facility], but now family declining. CM to replace referrals Subjective: denies hip pain Objective: Vital Signs Temp Pulse Resp BP Pulse Ox 36.9 C 101 H 16 145/88 H 91 L 09/15/17 15:12 09/15/17 15:12 09/15/17 15:12 09/15/17 15:12 09/15/17 15:12 Microbiology 09/14/17 11:55 Respiratory Panel (PCR) - Final Nasal, Sinus - Swab No Organism Detected Laboratory Results 09/12/17 05:08 09/14/17 04:29 09/14/17 09/15/17 09/16/17 05:59 05:59 05:59 Intake Total 3140 710 Output Total 150 Balance 3140 710 -150 PT 13.7 SEC (12.0-15.0) 09/10/17 11:32 INR 1.03 (0.83-1.16) 09/10/17 11:32 - Physical Exam Constitutional: no apparent distress Eyes: PERRL Ears, Nose, Mouth, Throat: dry mucous membranes Cardiovascular: regular rate and rhythym Respiratory: no respiratory distress Gastrointestinal: normoactive bowel sounds Genitourinary: no bladder fullness Musculoskeletal: other (left surgical hip wound dressed, no surrounding erythema ) Neurologic: other (alert, not answering questions appropriately) Psychiatric: interacting appropriately ICD10 Worksheet Patient Problems: Problems Problem Status Onset Dementia Acute Left displaced femoral neck fracture Acute
[2017-09-15] MEDS: MIRTAZAPINE 15 MG TAB PO SCH (20:16)
[2017-09-15] MEDS: QUEtiapine FUMARATE 25 MG TAB PO SCH (20:17)
[2017-09-15] MEDS: PETROLAT,WHT/MIN OIL/SOD CHL 3.5 GM OPHT.OINT LEFTEYE SCH (22:02)
[2017-09-16] MEDS: TEARS/DEXTRAN 70/HYPROMELLOSE 15 ML OPHT.BTL EACHEYE SCH ×11 (01:28→20:46)
[2017-09-16] MEDS: morphINE 10 MG/0.5 ML UDSYR PO PRN ×4 (06:33→16:33)
[2017-09-16] MEDS: FLUoxetine 20 MG CAP PO SCH (08:44)
[2017-09-16] MEDS: FLUDROCORTISONE ACETATE 0.1 MG TAB PO SCH (08:44)
[2017-09-16] MEDS: ENOXAPARIN 40 MG/0.4 ML SYR SC SCH (08:47)
[2017-09-16] MEDS: DOCUSATE SODIUM 100 MG CAP PO SCH (08:48)
[2017-09-16] MEDS: CIPROFLOXACIN 0.3% DROPS PREPACK OPHT.BTL TAKEHOME SCH ×3 (08:48→20:46)
[2017-09-16] MEDS: POLYETHYLENE GLYCOL 3350 17 GM PKT PO SCH (08:48)
[2017-09-16] MEDS: SENNOSIDES/DOCUSATE SODIUM TAB PO SCH ×2 (08:49→20:45)
--- NOTE | 2017-09-16 12:22 | HOSPPROG ---
Hospitalist Progress Note Assessment/Plan: #Hip fracture: POD #5 -surgical site stable #Lewy-body dementia/Parkinson's -psychosis worse with Ativan. Stopped and added PRN Seroquel, roller belt for patient safety #Mild fever: 2. CXR, resp panel negative. UA NL #Hypernatremia:due to poor PO intake -resolved with D5 #Lung nodule: no intervention per family #abd pain: AXR with just constipation #Goals: awaiting placement Subjective: agitated yesterday requring roller belt Objective: Vital Signs Temp Pulse Resp BP Pulse Ox 36.4 C 101 H 18 126/70 H 90 L 09/16/17 08:00 09/16/17 08:00 09/16/17 08:00 09/16/17 08:00 09/16/17 08:00 Laboratory Results 09/12/17 05:08 09/16/17 04:28 09/15/17 09/16/17 09/17/17 05:59 05:59 05:59 Intake Total 710 500 Output Total 150 Balance 710 350 PT 13.7 SEC (12.0-15.0) 09/10/17 11:32 INR 1.03 (0.83-1.16) 09/10/17 11:32 - Physical Exam Constitutional: other (anxious) Ears, Nose, Mouth, Throat: moist mucous membranes Cardiovascular: regular rate and rhythym Respiratory: no respiratory distress Gastrointestinal: normoactive bowel sounds Genitourinary: No mcintyre in urethra Musculoskeletal: other (left hip incision site dressed, C/D/I) Neurologic: CN II-XII Intact Psychiatric: anxious ICD10 Worksheet Patient Problems: Problems Problem Status Onset Dementia Acute Left displaced femoral neck fracture Acute
[2017-09-16] MEDS: QUEtiapine FUMARATE 25 MG TAB PO PRN (12:26)
--- NOTE | 2017-09-16 15:08 | ASMTCMCOM ---
CM Note CM Note Notes: Given patient's dementia and impulsivity many SNF's/LTC's have declined admission: [facility], [facility], [facility] willing to reassess Sunday but they feel as though they are not dora to meet her needs. Daughter and hesitant to place patient in [place], but [facility] has a [facility] Unit w/a higher staff to patient ratio, they can lower beds, have bed and chair alarms, baby monitors, etc. This is the only facility at [facility] time willing to take patient. Left message for daughter to contact me. Date Signed: 09/16/2017 03:08 PM Electronically Signed By:Alicia Cagle LCSW
--- NOTE | 2017-09-16 15:15 | ASMTCMCOM ---
CM Note CM Note Notes: See previous note 09/16/17. Patient had been at an assisted living with [facility] before her fall. Patient could go to SNF rehab and soon after qualify for LTC with [facility]osp[facility]. Date Signed: 09/16/2017 03:15 PM Electronically Signed By:Alicia Cagle LCSW
--- NOTE | 2017-09-16 16:15 | ASMTCMCOM ---
CM Note CM Note Notes: Pt's dtr Leilani ([phone]) called in afternoon to ask that [facility] and [facility] be sent referrals. She understands she will likely have to hire add'l help. Leilani and pt's are reluctant to have pt go to [facility] even though they are willing to accept and can accomodate her dementia. RN is currently using a roll belt for pt which may need to be DC'd for 24 hrs prior to DC. Date Signed: 09/16/2017 04:14 PM Electronically Signed By:Lianne Clark LCSW
[2017-09-16] MEDS: MIRTAZAPINE 15 MG TAB PO SCH (20:45)
[2017-09-16] MEDS: QUEtiapine FUMARATE 25 MG TAB PO SCH (20:45)
[2017-09-16] MEDS: PETROLAT,WHT/MIN OIL/SOD CHL 3.5 GM OPHT.OINT LEFTEYE SCH (20:47)
[2017-09-17] MEDS: TEARS/DEXTRAN 70/HYPROMELLOSE 15 ML OPHT.BTL EACHEYE SCH ×11 (00:52→22:25)
[2017-09-17] MEDS: SENNOSIDES/DOCUSATE SODIUM TAB PO SCH ×2 (07:59→20:32)
[2017-09-17] MEDS: QUEtiapine FUMARATE 25 MG TAB PO PRN ×2 (07:59→15:54)
[2017-09-17] MEDS: DOCUSATE SODIUM 100 MG CAP PO SCH (07:59)
[2017-09-17] MEDS: FLUoxetine 20 MG CAP PO SCH (07:59)
[2017-09-17] MEDS: FLUDROCORTISONE ACETATE 0.1 MG TAB PO SCH (07:59)
[2017-09-17] MEDS: ENOXAPARIN 40 MG/0.4 ML SYR SC SCH (08:00)
[2017-09-17] MEDS: POLYETHYLENE GLYCOL 3350 17 GM PKT PO SCH (08:00)
[2017-09-17] MEDS: CIPROFLOXACIN 0.3% DROPS PREPACK OPHT.BTL TAKEHOME SCH ×2 (08:00→20:32)
[2017-09-17] MEDS: morphINE 10 MG/0.5 ML UDSYR PO PRN ×2 (08:32→22:23)
[2017-09-17] MEDS ORDERED: POTASSIUM CL 20 MEQ/15 ML UDCUP PO ONE ×2 (08:40→13:45)
--- NOTE | 2017-09-17 13:04 | HOSPPROG ---
Hospitalist Progress Note Assessment/Plan: #Hip fracture: POD #6 -surgical site stable. -Lovenox for 14 days post-op -FU Dr. Bonds in 6 weeks #Hypokalemia: repleting. BMP in morning #Lewy-body dementia/Parkinson's -psychosis worse with Ativan. Stopped and added PRN Seroquel, roller belt for patient safety #Mild fever: none since 09/14. CXR, resp panel negative. UA NL #Hypernatremia:due to poor PO intake -resolved with D5. Monitor closely after DC with poor PO intake. Aliza can compound #Underweight with BMI less than 18: encourage supplement shakes #Lung nodule: no intervention per family #abd pain: AXR with just constipation #Goals: had d/w daughter who is MDPOA Recommend that she enrolls back into hospice at [facility]. Also broached cor status. DNR seems to align with goals. Spiritual care will meet to assist with MOST form #Disp: [facility] accepted patient and plan for DC tomorrow Time spent on visit: 50 min bedside with patient, coordinating DC with surgery and discussing goals with daughter Subjective: listening to music with daughter Objective: Vital Signs Temp Pulse Resp BP Pulse Ox 36.3 C 106 H 16 178/74 H 92 09/17/17 08:00 09/17/17 08:00 09/17/17 08:00 09/17/17 08:00 09/17/17 08:00 Laboratory Results 09/12/17 05:08 09/16/17 04:28 09/16/17 09/17/17 09/18/17 05:59 05:59 05:59 Intake Total 500 350 Output Total 150 100 Balance 350 250 PT 13.7 SEC (12.0-15.0) 09/10/17 11:32 INR 1.03 (0.83-1.16) 09/10/17 11:32 - Time Spent With Patient Time Spent with Patient: greater than 35 minutes Time Spent with Patient: Greater than 35 minutes spent on this patients care, greater than 50% of time spent counseling, educating, and coordinating care regarding the above mentioned plan. - Physical Exam Constitutional: no apparent distress, cachectic Ears, Nose, Mouth, Throat: moist mucous membranes, hearing normal Cardiovascular: regular rate and rhythym, no murmur, rub, or gallop Respiratory: no respiratory distress, no rales or rhonchi Gastrointestinal: normoactive bowel sounds, soft, non-tender abdomen Genitourinary: no bladder fullness Skin: warm Musculoskeletal: other (left hip incision dressed, CDI ) Neurologic: AAOx3, CN II-XII Intact Psychiatric: interacting appropriately ICD10 Worksheet Patient Problems: Problems Problem Status Onset Dementia Acute Left displaced femoral neck fracture Acute
--- NOTE | 2017-09-17 14:23 | ASMTCMCOM ---
CM Note CM Note Notes: Chart reviewed for dc planning purposes. Patient has dementia and daughter is her POA. The family would prefer facility other than [facility] but unfortunately patient in need of roll belt and is some times having outburst that are uncontrolled. [facility] evaluating, [facility] declines as patient has a roll belt. Options very limited at this time. CM to follow. Date Signed: 09/17/2017 02:22 PM Electronically Signed By:Viridiana Kessler RN
--- NOTE | 2017-09-17 14:31 | ASMTCMCOM ---
CM Note CM Note Notes: [facility] has accepted patient and daughter is to sign paperwork this pm. They can trnsport patient about 1 pm tomorrow. CM will notify MD and nursing to be prepared to facilitate am discharge. CM to follow. Date Signed: 09/17/2017 02:31 PM Electronically Signed By:Viridiana Kessler RN
[2017-09-17] MEDS: QUEtiapine FUMARATE 25 MG TAB PO SCH (20:32)
[2017-09-17] MEDS: MIRTAZAPINE 15 MG TAB PO SCH (20:32)
[2017-09-17] MEDS: PETROLAT,WHT/MIN OIL/SOD CHL 3.5 GM OPHT.OINT LEFTEYE SCH (20:32)
[2017-09-18] MEDS: TEARS/DEXTRAN 70/HYPROMELLOSE 15 ML OPHT.BTL EACHEYE SCH ×5 (01:18→10:08)
--- NOTE | 2017-09-18 08:38 | PDIAF ---
- Diagnosis Diagnosis: hip fracture Code Status: Full Code - Medication Management Discharge Medications: Medications to Continue on Transfer Allopurinol [Allopurinol 300 MG (RX)] 300 mg PO DAILY 09/10/17 [Last Taken 09/09] Ciprofloxacin HCl [Ciprofloxacin Opth Drops] 1 drop LEFTEYE BID 09/10/17 [Last Taken 09/10/17] Docusate Sodium [Colace 100 MG (*)] 100 mg PO DAILY 09/10/17 [Last Taken ] FLUoxetine [Prozac 20 MG (*)] 20 mg PO DAILY 09/10/17 [Last Taken 09/09/17] Fludrocortisone Acetate [Florinef] 0.5 tab PO DAILY 09/10/17 [Last Taken ] Mineral Oil/Petrolatum,White [Artificial Tears Eye Ointment] 1 drop LEFTEYE HS 09/10/17 [Last Taken 09/09/17] Mirtazapine [Remeron] 15 mg PO HS 09/10/17 [Last Taken 09/09/17] Polyethylene Glycol 3350 [Miralax 17 gm (*)] 17 gm PO DAILY 09/10/17 [Last Taken 09/08/17] QUEtiapine FUMARATE [Seroquel 25 mg (*)] 25 mg PO HS 09/10/17 [Last Taken ] Tears/Dextran 70/Hypromellose [Natural Balance Tears (*)] 1 drop EACHEYE Q2 07/16 [Last Taken 09/10/17 08:00] morphINE [Roxanol Solution 20 mg/ml 30 ml] 0.25 ml PO Q2HRS PRN 09/10/17 [Last Taken 09/10/17] traZODone [traZODONE 50MG (*)] 50 mg PO HS 09/10/17 [Last Taken 09/09/17] QUEtiapine FUMARATE [Seroquel 25 mg (*)] 12.5 mg PO Q6 PRN tab 09/15/17 [Last Taken Unknown] Sennosides/Docusate Sodium [Senokot-S] 1 - 2 tab PO BID tab 09/15/17 [Last Taken Unknown] Enoxaparin [Lovenox 40 MG (*)] 40 mg SQ DAILY #6 syr 09/17/17 [Last Taken Unknown] Discharge Medications: Refer to the Discharge Home Medication list for PRN reason. - Orders Services needed: Home Care, Registered Nurse, Physical Therapy, Occupational Therapy Home Care Face to Face: I certify that this patient was under my care and that I had the required [id number] encounter meeting the encounter requirements on the discharge day. My findings support the fact that the patient is homebound as defined in Home Care Face to Face Continued: CMS Chapter 7 Medicare Benefits Manual 30.1.1 , The condition of the patient is such that there exists a normal inability to leave home and consequently, leaving home would require a considerable and taxing effort. Diet Texture: Regular Texture Diet, Thin Liquids - Labs/Radiology BMP Date: 09/20/17 (Follow Na levels) - Follow Up Care Current Providers and Referrals: Patient,NotPresent [Unknown] - As per Instructions Reyes Bonds MD [Medical Doctor] - (Follow up with Dr. Bonds in 6 weeks)
[2017-09-18 09:40] VITALS: BP 141/88; PULSE 87; RESP 18; TEMP 97.9; O2SAT 90
[2017-09-18] MEDS: SENNOSIDES/DOCUSATE SODIUM TAB PO SCH (10:09)
[2017-09-18] MEDS: POLYETHYLENE GLYCOL 3350 17 GM PKT PO SCH (10:09)
[2017-09-18] MEDS: CIPROFLOXACIN 0.3% DROPS PREPACK OPHT.BTL TAKEHOME SCH (10:50)
[2017-09-18] MEDS: DOCUSATE SODIUM 100 MG CAP PO SCH (10:50)
[2017-09-18] MEDS: FLUDROCORTISONE ACETATE 0.1 MG TAB PO SCH (10:51)
[2017-09-18] MEDS: FLUoxetine 20 MG CAP PO SCH (10:51)
[2017-09-18] MEDS: ENOXAPARIN 40 MG/0.4 ML SYR SC SCH (10:51)
--- NOTE | 2017-09-18 13:03 | ASMTCMCOM ---
CM Note CM Note Notes: Pt medically stable for d/c to [facility], orders sent in Allscripts. Dr. Kamara provided hard script for bedside commode per [place] request which will be sent w pt. CARRIE thapa scheduled for 13:00 (no sooner available). Pt chris Duke updated. Date Signed: 09/18/2017 01:02 PM Electronically Signed By:BECKA Diez
--- NOTE | 2017-09-18 13:27 | ASDISCHSUM ---
Discharge Information Plan Status:SNF Medically Cleared to Leave: Discharge Date:09/18/2017 01:17 PM CM D/C Disposition:Long-Term Facility ADT D/C Disposition:Long-Term Facility Projected Discharge Date:09/16/2017 11:00 AM Transportation at D/C: Discharge Delay Reason: Follow-Up Date:09/16/2017 11:00 AM Discharge Slot: Final Diagnosis:L femoral neck fx Placement Information Referral Type:*[facility]/SNF Referral ID:[id number] Provider Name:[facility] Address 1:[address] Address 2: City:[place] Selection Factors: State:[place] Patient Contact Information Contact Name:ELIA Relationship: Address:[address] Work Phone: City:[place] Alternate Phone: State/Zip Code:[place] [address] Email: Financial Information Financial Class:Medicare Primary Plan Desc:MEDICARE INPATIENT Primary Plan Number:[id number] Secondary Plan Desc:AARP/MDR SUPPLEMENT Secondary Plan Number:[id number] Assessment Information [facility] CM Progress Note CM Note CM Note Notes: Pt had surgery for hip fracture yesterday. Pt lives w Steven at [facility] in memory care unit, pt has advanced dementia. Pt was on hospice and after fell she was d/c form hospice for the surgery and Steven wants pt to go to SNF for rehab (prefers a [facility]). Referrals sent: [facility] declines due to adv dementia, Interested SNFs include [facility], [facility] and [facility], pending referrals are [facility] and [facility]. Pt currently has a sitter and would need to be off 24 hours for SNF d/c. CM to follow. Date Signed: 09/11/2017 03:24 PM Electronically Signed By:BECKA Diez [facility] CM Progress Note CM Note CM Note Notes: Pt PASRR triggered and sent to [facility], returned and approved with no MMI. An accepting SNF is still pending. [facility] has declined pt due to adv dementia. Several SNFs are still considering. Amina Nelson met [facility] and will consider an on-site once pt is off a sitter. Cm to follow. D/c plan of care: SNF once medically stable and there is an accepting facility. Date Signed: 09/12/2017 02:37 PM Electronically Signed By:BECKA Diez [facility] Progress Note CM Note CM Note Notes: [facility] and [facility] are concerned about admitting pt to their rehabs due to severe dementia, now that pt no longer has sitter the staff of and [facility] would need to complete an on-site assessment to consider pt. Today Ralf Carlson completed an on-site and met Ralf ernandez pt states pt is tentatively accepted pending final approval to which may be the best SNF option because they have rehab and memory care. Looks like we still need the paperwork from chris Lobato that she is the MDPRADHA, attempted a call Cheryle & left a vm for her requesting it. CM to follow. Date Signed: 09/13/2017 04:06 PM Electronically Signed By:BECKA Diez [facility] CM Progress Note CM Note CM Note Notes: Pt accepted at [facility], htr Cheryle and alicja [facility] agreeable to [facility] d/c. Ralf reis [facility] admissions is reaching out to Cheryle to get POA paperwork, Cheryle reports she is POA until 09/29/17 when her father is off a conservatorship in [place] and then he is POA again. Ralf reports it is best for [facility] if pt admits between 12-3p. Date Signed: 09/14/2017 04:33 PM Electronically Signed By:BECKA Diez [facility] CM Progress Note CM Note CM Note Notes: Pt was ready for DC to [facility] today but MD wants to check UA and keep her one more day plus dtr and are now changing mind about [facility]. [facility] is first choice but they may not be able to take.CM to follow. Date Signed: 09/15/2017 01:55 PM Electronically Signed By:Lianne Clark LCSW [facility] CM Progress Note CM Note CM Note Notes: Given patient's dementia and impulsivity many SNF's/LTC's have declined admission: [facility], [facility], [facility], [facility] willing to reassess Sunday but they feel as though they are not dora to meet her needs. Daughter and hesitant to place patient in [facility], but [facility] has a Memory Care Unit w/a higher staff to patient ratio, they can lower beds, have bed and chair alarms, baby monitors, etc. This is the only facility at [facility] time willing to take patient. Left message for daughter to contact me. Date Signed: 09/16/2017 03:08 PM Electronically Signed By:Alicia Cagle LCSW [facility] Progress Note CM Note CM Note Notes: See previous note 09/16/17. Patient had been at an assisted living with [facility] before her fall. Patient could go to SNF rehab and soon after qualify for LTC with [facility]osp[facility]. Date Signed: 09/16/2017 03:15 PM Electronically Signed By:Alicia Cagle LCSW [facility] Progress Note CM Note CM Note Notes: Pt's dtr Leilani ([phone]) called in afternoon to ask that [facility] and [facility] be sent referrals. She understands she will likely have to hire add'l help. Leilani and pt's are reluctant to have pt go to [facility] even though they are willing to accept and can accomodate her dementia. RN is currently using a roll belt for pt which may need to be DC'd for 24 hrs prior to DC. Date Signed: 09/16/2017 04:14 PM Electronically Signed By:Lianne Clark LCSW [facility] CM Progress Note CM Note CM Note Notes: Chart reviewed for dc planning purposes. Patient has dementia and daughter is her POA. The family would prefer facility other than [facility] but unfortunately patient in need of roll belt and is some times having outburst that are uncontrolled. [facility] declines as patient has a roll belt. Options very limited at this time. CM to follow. Date Signed: 09/17/2017 02:22 PM Electronically Signed By:Viridiana Kessler RN [facility] CM Progress Note CM Note CM Note Notes: [facility] has accepted patient and daughter is to sign paperwork this pm. They can trnsport patient about 1 pm tomorrow. CM will notify MD and nursing to be prepared to facilitate am discharge. CM to follow. Date Signed: 09/17/2017 02:31 PM Electronically Signed By:Viridiana Kessler RN [facility] CM Progress Note CM Note CM Note Notes: Pt medically stable for d/c to [facility], orders sent in Allscripts. Dr. Kamara provided hard script for bedside commode per [place] request which will be sent w pt. CARRIE thapa scheduled for 13:00 (no sooner available). Pt chris Duke updated. Date Signed: 09/18/2017 01:02 PM Electronically Signed By:BECKA Diez Intervention Information Intervention Type:*IM-Signed Date of Service:09/18/2017 10:16 AM Patient Type:Inpatient Staff Member:Carolin Slaughter Hours: Discipline: Severity: Comment:
--- NOTE | 2017-09-18 15:11 | GDS ---
[f rep st] DISCHARGE SUMMARY DISCHARGE DIAGNOSES: 1. Lewy body dementia. 2. Hip fracture status post surgical repair. 3. Hypokalemia. 4. Mild fever. 5. Hyponatremia. 6. Underweight with BMI less than 18. 7. Lung nodule. 8. Abdominal pain. HISTORY OF PRESENT ILLNESS: A 71-year-old female with history of Lewy body dementia, and psychosis, who is currently living with her at [facility] with the help of hospice. T hree days prior to admission, she fell and fractured her left hip. They were treating her medically with pain control with Roxanol, Percocet. did not want her to that way, so they likely e lected to take her off hospice, and have her hip repaired, in hopes that she would ambulate again. S he was currently on hospice for protein caloric malnutrition and weight loss. HOSPITAL COURSE BY PROBLEM: 1. Left hip fracture secondary to mechanical fall. Underwent left hip hemiarthroplasty by Dr. Bonds on 09/10/2017. Wound was clean, dry, and intact today. She is to follow up with Dr. Bonds on September 282017. We will continue Lovenox for 2 weeks postop. 2. Hypokalemia secondary to decreased p.o. intake. This was repleted. 3. Lewy body dementia/Parkinson: This is complicated by psychosis. This is worse with Ativan, so w ould not recommend restarting this medication. She is on Seroquel, and would recommend p.r.n. Seroqu el, which has worked nicely here. Ativan can cause paradoxical affects and make her psychosis worse, so discontinue this medication. 4. Mild fever on 09/14. No evidence of infection. Her x-ray, respiratory, PRC and UA were normal. Surgical site looked good. 5. Hyponatremia, secondary to p.o. intake. Due to the poor intake secondary to her underlying demen tia, I had a discussion with her daughter and explained this could happen again and to encourage as m uch p.o. intake as possible. Florinef could compound this. This should be monitored closely and can consider discontinuing Florinef, which is used for orthostatic hypotension, if this becomes an issue . 6. Underweight with BMI less than 18. Encourage supplement shakes. 7. Lung nodule: This is an incidental finding. Per family would not want further evaluation given other comorbidities. GOALS: I had a long conversation with her daughter, who is her MD JONES. I recommend that she enroll back into hospice at discharge, and I also broached the core status, DNR seems to line with patient's goals. Advised daughter to complete a MOLST form. DISPOSITION: Patient is stable for discharge to [facility]. MEDICATIONS: New: Seroquel 12.5 mg q.6 hours p.r.n. Discontinued: Ativan. FOLLOW UP: Dr. Bonds with Orthopedics. Monitor sodium levels. Encourage p.o. intake. If hyponatremia, could consider discontinuing [place] f. PHYSICAL EXAMINATION: VITAL SIGNS: Today, temperature 36.6, blood pressure 141/81, heart rate in th e 80s, respirations 18, % on room air. GENERAL: Cachectic. Mildly agitated. HEENT: PERRLA. EOMI. Moist mucous membranes. CV: Regular rate and rhythm. No murmurs, gallops, rubs. LUNGS: Clear. ABDOMEN: Soft, nontender. HIP: Wound infectio n, dressed clean, dry, and intact. No surrounding erythema or warmth. NEURO: 2 through 12 intact. PSYCH: Alert. /[id number]/MODL
== END 2017-09-18 13:17 | DRG 470 ==
LOC: F3N 12:29
PROVIDERS: ADMIT Internal Medicine; ATTEND Internal Medicine
PROC: 0SRB0J9 Replacement of Left Hip Joint with Synthetic Substitute, Cemented, Open Approach (ICD-10-PCS; principal; 2017-09-10 18:00)
DX: S72.002A Fracture of unspecified part of neck of left femur, initial encounter for closed fracture (principal); E87.1 Hypo-osmolality and hyponatremia; Z68.1 Body mass index [BMI] 19.9 or less, adult; W19.XXXA Unspecified fall, initial encounter; Y92.129 Unspecified place in nursing home as the place of occurrence of the external cause; G31.83 Neurocognitive disorder with Lewy bodies; F02.80 Dementia in other diseases classified elsewhere, unspecified severity, without behavioral disturbance, psychotic disturbance, mood disturbance, and anxiety; E87.6 Hypokalemia; R63.6 Underweight; R91.1 Solitary pulmonary nodule; E86.0 Dehydration; Z66 Do not resuscitate; K59.00 Constipation, unspecified
CPT/HCPCS: 92526-GN; 92610-GN; 97110-GP; 97116-GP; 97162-GP; 97166-GO; 97530-GO; 97530-GP; 97535-GO; C1713; G8978-GP-CL; G8979-GP-CK; G8987-GO-CM; G8988-GO-CL; G8996-GN-CJ; G8997-GN-CJ; G8998-GN-CJ; J0690; J1100; J1650; J2060; J2270; J2370; J2704; J3010; J3475; J3480